=== PATIENT | male | born 1970 | race Caucasian/White ===

== ENCOUNTER 2017-09-13 12:45 | Emergency (ER) | payer MEDICAID, OTHER ==
[~2017-09-13] VITALS: Ht 177.8 cm; Wt 104.0 kg
[~2017-09-13 12:45] MED LIST: HYDR-569 PO
[2017-09-13] MEDS ORDERED: ALBU8HFA PO (14:39)
[2017-09-13] MEDS ORDERED: IBUP-1984 PO (14:39)
[2017-09-13] MEDS ORDERED: ibuprofen tablet 400 MG TABLET PO ONE (14:45)
[2017-09-13] MEDS ORDERED: albuterol 2.5 MG/3 ML nebule NEB ONE (15:15)
[2017-09-13 16:22] VITALS: BP 160/79
== END 2017-09-13 17:04 | disposition home or self-care (01) ==
LOC: ER 12:46
DX: J40 Bronchitis, not specified as acute or chronic (principal); F10.10 Alcohol abuse, uncomplicated; F12.10 Cannabis abuse, uncomplicated; F15.10 Other stimulant abuse, uncomplicated; Z60.2 Problems related to living alone; Z56.0 Unemployment, unspecified
CPT/HCPCS: 71045; 94640; 94760; 99283

== ENCOUNTER 2019-01-06 16:03 | Emergency (ER) | payer MEDICAID, OTHER ==
[~2019-01-06] VITALS: Ht 177.8 cm; Wt 120.0 kg
[~2019-01-06 16:03] MED LIST changes: +HYDR-4383 PO; -HYDR-569 PO
[2019-01-06 16:07] VITALS: BP 180/107
[2019-01-06] MEDS ORDERED: baclofen 10mg tablet PO STA (17:13)
[2019-01-06] MEDS ORDERED: LIDOcaine 5% patch TP STA (17:13)
[2019-01-06] MEDS ORDERED: ibuprofen tablet 400 MG TABLET PO ONE (17:15)
[2019-01-06] MEDS ORDERED: LIDO700A32 TOP (17:20)
[2019-01-06] MEDS ORDERED: ACET-2119 PO (17:20)
[2019-01-06] MEDS ORDERED: IBUP-1985 PO (17:20)
== END 2019-01-06 17:49 | disposition home or self-care (01) ==
LOC: ER 16:04
DX: S39.012A Strain of muscle, fascia and tendon of lower back, initial encounter (principal); F10.99 Alcohol use, unspecified with unspecified alcohol-induced disorder; F12.90 Cannabis use, unspecified, uncomplicated; F15.90 Other stimulant use, unspecified, uncomplicated; Z59.0 Homelessness; Z56.0 Unemployment, unspecified; Z88.8 Allergy status to other drugs, medicaments and biological substances; Z79.899 Other long term (current) drug therapy; X50.1XXA Overexertion from prolonged static or awkward postures, initial encounter; Y93.89 Activity, other specified; Y92.89 Other specified places as the place of occurrence of the external cause; Y99.8 Other external cause status; Y90.9 Presence of alcohol in blood, level not specified
CPT/HCPCS: 99284

== ENCOUNTER 2020-12-20 06:46 | Inpatient (IN) | payer MEDICAID ==
[~2020-12-20] VITALS: Ht 177.8 cm; Wt 131.6 kg
[~2020-12-20 06:46] MED LIST changes: +IBUP-1985 PO; +LIDO700A32 TOP
[2020-12-20 09:03] LABS: BASOPHILS # (AUTO) 0.1 X10'3 (0-0.2); EOSINOPHILS # (AUTO) 0.2 X10'3 (0-0.9); EOSINOPHILS % (AUTO) 2.4 % (0-6); HEMATOCRIT 44.4 % (42.0-52.0); HEMOGLOBIN 14.8 g/dl (14.0-17.9); LYMPHOCYTES # (AUTO) 2.5 X10'3 (1.1-4.8); LYMPHOCYTES % (AUTO) 32.1 % (21-51); MEAN CORPUSCULAR HEMOGLOBIN 28.5 PG (27.0-31.0); MEAN CORPUSCULAR HGB CONC 33.3 g/dL (33.0-36.5); MEAN CORPUSCULAR VOLUME 85.5 FL (78-98); MEAN PLATELET VOLUME 7.7 FL (7.4-10.4); MONOCYTES # (AUTO) 0.6 X10'3 (0-0.9); MONOCYTES % (AUTO) 7.9 % (2-12); NEUTROPHILS # (AUTO) 4.5 X10'3 (1.8-7.7); NEUTROPHILS % (AUTO) 56.6 % (42-75); PLATELET COUNT 317 X10'3 (140-440); RED CELL DISTRIBUTION WIDTH 14.6 % (11.5-14.5); WHITE BLOOD COUNT 7.9 X10'3 (4.5-11.0)
[2020-12-20 09:24] LABS: ALANINE AMINOTRANSFERASE 44 U/L (12-78); ALBUMIN 3.5 G/DL (3.4-5.0); ALBUMIN/GLOBULIN RATIO 0.7 (1.1-1.5); ALKALINE PHOSPHATASE 101 IU/L (46-116); ANION GAP 10 (8-16); ASPARTATE AMINO TRANSFERASE 27 U/L (10-37); BILIRUBIN,TOTAL 0.7 MG/DL (0.1-1.0); BLOOD UREA NITROGEN 11 MG/DL (7-18); BUN/CREATININE RATIO 10.8 (5.4-32.0); CALCIUM 8.3 MG/DL (8.5-10.1); CHLORIDE 103 MMOL/L (99-107); CREATININE 1.02 MG/DL (0.60-1.10); GLUCOSE 98 MG/DL (70-104); POTASSIUM 3.5 MMOL/L (3.5-5.1); SODIUM 139 MMOL/L (135-145); TOTAL PROTEIN 8.2 G/DL (6.4-8.2); eGFR 77 ML/MIN
[2020-12-20] MEDS ORDERED: vancomycin/NS 1 GM ADD-VANTAGE 250 ML IV ONE (09:30)
[2020-12-20] MEDS ORDERED: nitroGLYCERIN 0.4mg/hour patch TD ONE (10:20)
[2020-12-20] MEDS ORDERED: HYDROcodone/acetaminophen 5mg/325mg tablet PO PRN (10:40)
[2020-12-20] MEDS ORDERED: mag hydrox/Alum hydrox/simeth 30ml oral suspension PO PRN (10:40)
[2020-12-20] MEDS ORDERED: morphine 2 MG/ML inj. syringe IV PRN ×2 (10:40)
[2020-12-20] MEDS ORDERED: ondansetron/PF 4mg/2ml inj IV PRN (10:40)
[2020-12-20] MEDS ORDERED: magnesium hydroxide 30ml (MOM) UD suspension PO PRN (10:40)
[2020-12-20] MEDS ORDERED: acetaminophen 325mg tablet PO PRN ×2 (10:40)
--- NOTE | 2020-12-20 10:42 | NUR ---
voided 300cc clear yellow via urinal.
[2020-12-20] MEDS ORDERED: NO HOME MEDS (11:17)
[2020-12-20] MEDS ORDERED: cloNIDine 0.1 mg tablet PO ONE (11:25)
[2020-12-20] MEDS: cloNIDine 0.1 mg tablet PO SCH ×2 (13:00→21:27)
[2020-12-20 15:45] VITALS: BP 159/91
[2020-12-20] MEDS: cefazolin/dext.iso 2gm/100ml 100 ML IV SCH (16:46)
--- NOTE | 2020-12-20 18:43 | NUR ---
Problems reprioritized. Patient report given, questions answered & plan of care reviewed with SHAQUILLE Martinez.
--- NOTE | 2020-12-20 18:59 | NUR ---
Patient in room [facility]. I have received report from Yasmine CORBIN and had the opportunity to ask questions and assume patient care.
[2020-12-20 20:18] VITALS: BP 151/82
[2020-12-20 23:22] VITALS: BP 138/78
[2020-12-21] MEDS: cefazolin/dext.iso 2gm/100ml 100 ML IV SCH ×4 (00:27→23:23)
--- NOTE | 2020-12-21 06:34 | NUR ---
Problems reprioritized. Patient report given, questions answered & plan of care reviewed with Becky CORBIN.
[2020-12-21 07:00] VITALS: BP 151/99
[2020-12-21] MEDS: cloNIDine 0.1 mg tablet PO SCH ×3 (08:18→23:22)
[2020-12-21] MEDS: HYDROcodone/acetaminophen 10/325mg tab PO PRN (08:19)
[2020-12-21] MEDS: enoxaparin 40mg/0.4ml syringe SUBCUT SCH (08:19)
[2020-12-21 10:02] LABS: BASOPHILS # (AUTO) 0.1 X10'3 (0-0.2); EOSINOPHILS # (AUTO) 0.1 X10'3 (0-0.9); EOSINOPHILS % (AUTO) 1.8 % (0-6); MONOCYTES # (AUTO) 0.4 X10'3 (0-0.9); RED BLOOD COUNT 4.98 X10'6 (4.70-6.10); WHITE BLOOD COUNT 6.8 X10'3 (4.5-11.0)
[2020-12-21 10:04] LABS: BASOPHILS % (AUTO) 0.9 % (0-1); HEMATOCRIT 42.2 % (42.0-52.0); HEMOGLOBIN 14.4 g/dl (14.0-17.9); LYMPHOCYTES # (AUTO) 1.5 X10'3 (1.1-4.8); LYMPHOCYTES % (AUTO) 22.2 % (21-51); MEAN CORPUSCULAR HEMOGLOBIN 28.9 PG (27.0-31.0); MEAN CORPUSCULAR HGB CONC 34.1 g/dL (33.0-36.5); MEAN CORPUSCULAR VOLUME 84.7 FL (78-98); MONOCYTES % (AUTO) 6.4 % (2-12); NEUTROPHILS # (AUTO) 4.7 X10'3 (1.8-7.7); NEUTROPHILS % (AUTO) 68.7 % (42-75); PLATELET COUNT 302 X10'3 (140-440); RED CELL DISTRIBUTION WIDTH 14.3 % (11.5-14.5)
[2020-12-21 10:10] LABS: ANION GAP 6 (8-16); BLOOD UREA NITROGEN 14 MG/DL (7-18); CALCIUM 8.6 MG/DL (8.5-10.1); CHLORIDE 104 MMOL/L (99-107); GLUCOSE 173 MG/DL (70-104); POTASSIUM 3.7 MMOL/L (3.5-5.1); SODIUM 139 MMOL/L (135-145); TOTAL CARBON DIOXIDE 28.6 MMOL/L (24-32); eGFR 79 ML/MIN
[2020-12-21 11:00] VITALS: BP 135/96
[2020-12-21 15:18] VITALS: BP 137/90
--- NOTE | 2020-12-21 18:37 | NUR ---
Gave report to Juan CORBIN.
--- NOTE | 2020-12-21 19:05 | NUR ---
Patient in room [facility]. I have received report from Becky CORBIN and had the opportunity to ask questions and assume patient care.
[2020-12-21] MEDS: lactobacillus rhamnosus 10,000 MMU CELLS/CAPSULE PO SCH (23:22)
[2020-12-22 06:31] LABS: BASOPHILS % (AUTO) 0.4 % (0-1); EOSINOPHILS # (AUTO) 0.2 X10'3 (0-0.9); EOSINOPHILS % (AUTO) 2.5 % (0-6); HEMATOCRIT 43.4 % (42.0-52.0); HEMOGLOBIN 14.7 g/dl (14.0-17.9); LYMPHOCYTES # (AUTO) 2.1 X10'3 (1.1-4.8); LYMPHOCYTES % (AUTO) 28.3 % (21-51); MEAN CORPUSCULAR HEMOGLOBIN 29.1 PG (27.0-31.0); MEAN CORPUSCULAR HGB CONC 33.8 g/dL (33.0-36.5); MEAN CORPUSCULAR VOLUME 86.1 FL (78-98); MEAN PLATELET VOLUME 7.8 FL (7.4-10.4); MONOCYTES # (AUTO) 0.6 X10'3 (0-0.9); MONOCYTES % (AUTO) 8.6 % (2-12); NEUTROPHILS # (AUTO) 4.4 X10'3 (1.8-7.7); NEUTROPHILS % (AUTO) 60.2 % (42-75); PLATELET COUNT 306 X10'3 (140-440); RED BLOOD COUNT 5.04 X10'6 (4.70-6.10); RED CELL DISTRIBUTION WIDTH 14.4 % (11.5-14.5); WHITE BLOOD COUNT 7.3 X10'3 (4.5-11.0)
--- NOTE | 2020-12-22 06:41 | NUR ---
Patient in room [facility]. I have received report from Juan CORBIN and had the opportunity to ask questions and assume patient care.
[2020-12-22 06:49] LABS: ANION GAP 8 (8-16); BLOOD UREA NITROGEN 12 MG/DL (7-18); CALCIUM 8.5 MG/DL (8.5-10.1); CHLORIDE 105 MMOL/L (99-107); CREATININE 0.86 MG/DL (0.60-1.10); GLUCOSE 95 MG/DL (70-104); POTASSIUM 4.2 MMOL/L (3.5-5.1); SODIUM 140 MMOL/L (135-145); TOTAL CARBON DIOXIDE 26.7 MMOL/L (24-32); eGFR > 90 ML/MIN
--- NOTE | 2020-12-22 07:13 | NUR ---
Problems reprioritized. Patient report given, questions answered & plan of care reviewed with Amelia CORBIN.
[2020-12-22 07:30] VITALS: BP 161/114
[2020-12-22] MEDS: lactobacillus rhamnosus 10,000 MMU CELLS/CAPSULE PO SCH (07:35)
[2020-12-22] MEDS: cloNIDine 0.1 mg tablet PO SCH ×2 (07:36→13:28)
[2020-12-22] MEDS: HYDROcodone/acetaminophen 10/325mg tab PO PRN (07:36)
[2020-12-22] MEDS: cefazolin/dext.iso 2gm/100ml 100 ML IV SCH (07:37)
[2020-12-22] MEDS: enoxaparin 40mg/0.4ml syringe SUBCUT SCH (07:37)
[2020-12-22 07:45] VITALS: BP 160/100
--- NOTE | 2020-12-22 07:53 | NUR ---
Pt's BP elevated, c/o neck and back pain 01/23 (states he thinks it's from laying in the hospital bed). Meds given. Charge notified. Will continue to monitor.
[2020-12-22] MEDS ORDERED: HYDR-3965 PO (10:28)
[2020-12-22] MEDS ORDERED: CLIN-91 PO (10:28)
[2020-12-22] MEDS ORDERED: CLON0.1T2 PO (10:28)
--- NOTE | 2020-12-22 13:30 | NUR ---
Pt had been waiting for ride to d/c. States his mother was here but he forgot to tell this RN. Pt d/c completed. Pt stable and appropriate for d/c. PIV d/c'd cannula intact. Reviewed with pt all d/c instructions, meds, wound care and followup with pt given opportunity to ask questions, answers provided and pt verbalizing understanding. Prescriptions escripted to pharmacy of choice. Pt to call and schedule an appt with a PCP. Pt to call MD with any questions, concerns or worsening symptoms or return to nearest ED. Pt states he has all personal belongings. Pt escorted to front lobby by staff member via w/c. D/C'd home in private vehicle driven by family member.
--- NOTE | 2020-12-22 13:41 | NUR ---
room 347B d/c'g pt - he is verbalizing concerns asking if his D/C meds will be paid for by his insurance. Thank you, Amelia will continue to monitor.
== END 2020-12-22 13:51 | disposition home or self-care (01) | DRG 383 ==
LOC: ER 06:47 → ED HOLD 10:40 → SUR 3N 15:42
PROVIDERS: ADMIT Internal Medicine; ATTEND Internal Medicine
DX: L03.116 Cellulitis of left lower limb (principal); E66.01 Morbid (severe) obesity due to excess calories; F12.90 Cannabis use, unspecified, uncomplicated; I10 Essential (primary) hypertension; G47.30 Sleep apnea, unspecified; I87.2 Venous insufficiency (chronic) (peripheral); Z68.41 Body mass index [BMI] 40.0-44.9, adult; Z83.3 Family history of diabetes mellitus; Z87.442 Personal history of urinary calculi; Z87.891 Personal history of nicotine dependence; Z59.0 Homelessness; Z88.8 Allergy status to other drugs, medicaments and biological substances
CPT/HCPCS: 36415; 80048; 80053; 82948; 83605; 83880; 85025; 87040; 87081; 93971; 96374; 99285; G0378; J1650; J2270; J3370

== ENCOUNTER 2021-01-10 02:49 | Emergency (ER) | payer MEDICAID ==
[~2021-01-10] VITALS: Ht 177.8 cm; Wt 113.6 kg
[~2021-01-10 02:49] MED LIST changes: +CLON0.1T2 PO; +HYDR-3965 PO; -HYDR-4383 PO; -IBUP-1985 PO; -LIDO700A32 TOP
[2021-01-10 03:10] VITALS: BP 182/114
== END 2021-01-10 05:41 | disposition left against medical advice (07) ==
LOC: ER 02:50
DX: R10.9 Unspecified abdominal pain (principal); Z53.21 Procedure and treatment not carried out due to patient leaving prior to being seen by health care provider
CPT/HCPCS: 93005

== ENCOUNTER 2021-02-07 15:24 | Emergency (ER) | payer MEDICAID ==
[~2021-02-07] VITALS: Ht 177.8 cm; Wt 136.4 kg
[~2021-02-07 15:24] MED LIST changes: -HYDR-3965 PO
[2021-02-07] MEDS ORDERED: iohexol 300mg/ml 100ml inj. ONE (17:30)
[2021-02-07 17:35] LABS: BASOPHILS # (AUTO) 0.1 X10'3 (0-0.2); BASOPHILS % (AUTO) 0.6 % (0-1); EOSINOPHILS # (AUTO) 0.2 X10'3 (0-0.9); EOSINOPHILS % (AUTO) 1.4 % (0-6); HEMATOCRIT 45.5 % (42.0-52.0); HEMOGLOBIN 15.4 g/dl (14.0-17.9); LYMPHOCYTES # (AUTO) 2.2 X10'3 (1.1-4.8); MEAN CORPUSCULAR HEMOGLOBIN 28.8 PG (27.0-31.0); MEAN CORPUSCULAR HGB CONC 33.8 g/dL (33.0-36.5); MEAN CORPUSCULAR VOLUME 85.1 FL (78-98); MEAN PLATELET VOLUME 7.4 FL (7.4-10.4); MONOCYTES # (AUTO) 0.6 X10'3 (0-0.9); MONOCYTES % (AUTO) 5.1 % (2-12); NEUTROPHILS # (AUTO) 9.2 X10'3 (1.8-7.7); NEUTROPHILS % (AUTO) 74.9 % (42-75); PLATELET COUNT 356 X10'3 (140-440); RED BLOOD COUNT 5.35 X10'6 (4.70-6.10); RED CELL DISTRIBUTION WIDTH 13.9 % (11.5-14.5); WHITE BLOOD COUNT 12.2 X10'3 (4.5-11.0)
[2021-02-07] MEDS ORDERED: morphine 10mg/ml inj. IV ONE (18:00)
[2021-02-07] MEDS ORDERED: TETanus/Pertussis (Acell)/Diphther VAC/PF (Tdap-Adult) 0.5ml syringe IMVAC ONE (18:00)
[2021-02-07 18:33] VITALS: BP 185/115
--- NOTE | 2021-02-07 18:43 | NUR ---
CHIPPING MACHINE OPERATOR EMAN CONTACTED - IN ROUTE, 30MIN ETA.
--- NOTE | 2021-02-07 19:15 | NUR ---
Loader Engineer at the bedside to splint R wrist/hand.
[2021-02-07 19:20] LABS: ALANINE AMINOTRANSFERASE 46 U/L (12-78); ALBUMIN 3.7 G/DL (3.4-5.0); ALBUMIN/GLOBULIN RATIO 0.8 (1.1-1.5); ALKALINE PHOSPHATASE 102 IU/L (46-116); ANION GAP 1 (8-16); ASPARTATE AMINO TRANSFERASE 32 U/L (10-37); BILIRUBIN,TOTAL 0.5 MG/DL (0.1-1.0); BLOOD UREA NITROGEN 10 MG/DL (7-18); BUN/CREATININE RATIO 10.5 (5.4-32.0); CALCIUM 8.6 MG/DL (8.5-10.1); CHLORIDE 102 MMOL/L (99-107); CREATININE 0.95 MG/DL (0.60-1.10); GLUCOSE 95 MG/DL (70-104); POTASSIUM 3.3 MMOL/L (3.5-5.1); SODIUM 131 MMOL/L (135-145); TOTAL CARBON DIOXIDE 28.3 MMOL/L (24-32); TOTAL PROTEIN 8.1 G/DL (6.4-8.2); eGFR 84 ML/MIN
--- NOTE | 2021-02-07 19:40 | NUR ---
Pt given and understands d/c instructions. R UE in a sling. Ambulatory with a steady gait.
== END 2021-02-07 19:45 | disposition home or self-care (01) ==
LOC: ER 15:24
DX: S02.2XXA Fracture of nasal bones, initial encounter for closed fracture (principal); S62.300A Unspecified fracture of second metacarpal bone, right hand, initial encounter for closed fracture; S01.21XA Laceration without foreign body of nose, initial encounter; R07.89 Other chest pain; M25.511 Pain in right shoulder; I10 Essential (primary) hypertension; F12.90 Cannabis use, unspecified, uncomplicated; F15.90 Other stimulant use, unspecified, uncomplicated; Z87.442 Personal history of urinary calculi; Z56.0 Unemployment, unspecified; Z59.0 Homelessness; Z88.8 Allergy status to other drugs, medicaments and biological substances; Z79.899 Other long term (current) drug therapy; V99.XXXA Unspecified transport accident, initial encounter; Y93.89 Activity, other specified; Y92.89 Other specified places as the place of occurrence of the external cause; Y99.8 Other external cause status
CPT/HCPCS: 29125; 36415; 70450; 71260; 72125; 73030; 73130; 73564; 74177; 80053; 85025; 85610; 90471; 90715; 96374; 99285; J2270; Q9967

== ENCOUNTER 2021-09-05 12:14 | Inpatient (IN) | payer MEDICAID ==
[~2021-09-05] VITALS: Ht 177.8 cm; Wt 104.5 kg
[2021-09-05 13:46] LABS: BASOPHILS # (AUTO) 0.1 X10'3 (0-0.2); BASOPHILS % (AUTO) 0.4 % (0-1); EOSINOPHILS # (AUTO) 0.1 X10'3 (0-0.9); EOSINOPHILS % (AUTO) 0.4 % (0-6); HEMATOCRIT 42.1 % (42.0-52.0); HEMOGLOBIN 13.7 g/dl (14.0-17.9); LYMPHOCYTES # (AUTO) 1.5 X10'3 (1.1-4.8); LYMPHOCYTES % (AUTO) 8.1 % (21-51); MEAN CORPUSCULAR HEMOGLOBIN 27.5 PG (27.0-31.0); MEAN CORPUSCULAR HGB CONC 32.6 g/dL (33.0-36.5); MEAN CORPUSCULAR VOLUME 84.3 FL (78-98); MEAN PLATELET VOLUME 7.5 FL (7.4-10.4); MONOCYTES # (AUTO) 1.2 X10'3 (0-0.9); MONOCYTES % (AUTO) 6.5 % (2-12); NEUTROPHILS # (AUTO) 15.4 X10'3 (1.8-7.7); NEUTROPHILS % (AUTO) 84.6 % (42-75); PLATELET COUNT 327 X10'3 (140-440); RED BLOOD COUNT 4.99 X10'6 (4.70-6.10); RED CELL DISTRIBUTION WIDTH 13.9 % (11.5-14.5); WHITE BLOOD COUNT 18.2 X10'3 (4.5-11.0)
[2021-09-05 13:57] LABS: CLARITY,URINE CLEAR (Clear); COLOR,URINE YELLOW (Yellow); GLUCOSE, URINE NEGATIVE (Neg); KETONES,URINE NEGATIVE (Neg); LEUKOCYTE ESTERASE ,URINE NEGATIVE (Neg); NITRITES, URINE NEGATIVE (Neg); OCCULT BLOOD,URINE NEGATIVE (Neg); PROTEIN,URINE NEGATIVE (Neg)
[2021-09-05 13:59] LABS: UA COLLECTION TYPE CLN CATCH MIDSTREAM
[2021-09-05 14:11] LABS: ALANINE AMINOTRANSFERASE 40 U/L (12-78); ALBUMIN 3.3 G/DL (3.4-5.0); ALBUMIN/GLOBULIN RATIO 0.7 (1.1-1.5); ALKALINE PHOSPHATASE 96 IU/L (46-116); ANION GAP 13 (8-16); ASPARTATE AMINO TRANSFERASE 26 U/L (10-37); BILIRUBIN,TOTAL 1.1 MG/DL (0.1-1.0); BLOOD UREA NITROGEN 10 MG/DL (7-18); BUN/CREATININE RATIO 12.5 (5.4-32.0); CALCIUM 8.8 MG/DL (8.5-10.1); CHLORIDE 102 MMOL/L (99-107); GLUCOSE 97 MG/DL (70-104); POTASSIUM 3.7 MMOL/L (3.5-5.1); SODIUM 138 MMOL/L (135-145); TOTAL CARBON DIOXIDE 22.6 MMOL/L (24-32); TOTAL PROTEIN 8.1 G/DL (6.4-8.2); eGFR > 90 ML/MIN
--- NOTE | 2021-09-05 14:28 | NUR ---
Patient reports occasional meth use; last use three days ago.
[2021-09-05] MEDS ORDERED: piperacillin/tazo 3.375gm/50ml 50 ML IV ONE (14:55)
[2021-09-05] MEDS ORDERED: normal saline 1000ML IV soln IV ONE (14:55)
[2021-09-05] MEDS ORDERED: NO HOME MEDS (17:32)
[2021-09-05] MEDS ORDERED: potassium Cl 20 mEq SR tablet PO PRN ×2 (17:40)
[2021-09-05] MEDS ORDERED: metoclopramide 5 mg/ml inj IV PRN (17:40)
[2021-09-05] MEDS ORDERED: HYDROcodone/acetaminophen 5mg/325mg tablet PO PRN (17:40)
[2021-09-05] MEDS ORDERED: magnesium Cl slow-release 64mg tablet PO PRN (17:40)
[2021-09-05] MEDS ORDERED: ondansetron/PF 4mg/2ml inj IV PRN (17:40)
[2021-09-05] MEDS ORDERED: bisacodyl 10mg suppository rectal RC PRN (17:40)
[2021-09-05] MEDS ORDERED: ondansetron 4mg rapidly disintigrating tab PO PRN (17:40)
[2021-09-05] MEDS ORDERED: acetaminophen 325mg tablet PO PRN ×2 (17:40)
[2021-09-05] MEDS ORDERED: magnesium 2GM in 50ml NS 50 ML IV PRN (17:40)
[2021-09-05] MEDS ORDERED: mag hydrox/Alum hydrox/simeth 30ml oral suspension PO PRN (17:40)
[2021-09-05] MEDS ORDERED: acetaminophen 650mg rectal suppository RC PRN (17:40)
[2021-09-05] MEDS ORDERED: magnesium hydroxide 30ml (MOM) UD suspension PO PRN (17:40)
[2021-09-05] MEDS ORDERED: potassium CL 10mEq/100ml bag 100 ML IV PRN (17:40)
[2021-09-05] MEDS ORDERED: HYDROmorphone inj. 0.5 MG/0.5 ML DISP.SYRIN IV PRN (17:40)
[2021-09-05] MEDS ORDERED: HYDROmorphone/PF 0.2 MG/ML SYRINGE IV PRN (17:40)
[2021-09-05] MEDS ORDERED: magnesium 4gm in 100ml NS 100 ML IV PRN (17:40)
[2021-09-05] MEDS: normal saline 1000ml 1,000 ML IV SCH ×2 (17:58→23:37)
[2021-09-05 18:17] LABS: MAGNESIUM 1.9 MG/DL (1.5-2.4); POTASSIUM 3.7 MMOL/L (3.5-5.1)
--- NOTE | 2021-09-05 18:36 | NUR ---
Assumed care of patient from Gordo CORBIN. Vanesa+Ox4. Aware of admission. IV fluids infusing
[2021-09-05] MEDS ORDERED: VANCOmycin 2,000MG in NS 500ml IV soln IV ONE (19:00)
--- NOTE | 2021-09-05 19:14 | NUR ---
SPOKE WITH PHARMACY PREPARING VANCOMYCIN 2GM IV
[2021-09-05] MEDS: docusate sod 100mg capsule PO SCH (20:02)
[2021-09-05] MEDS: lisinopril 20mg tablet PO SCH (20:03)
[2021-09-05] MEDS: furosemide 20 MG/2 ML vial IV SCH (20:06)
[2021-09-05] MEDS ORDERED: temazepam 15mg capsule PO PRN (21:00)
--- NOTE | 2021-09-05 21:30 | NUR ---
Received report from Brunilda CORBIN in the ER. Pt arrived on the unit via wheelchair and was able to ambulate independently to his bed. Pt belongings were placed at bedside. Pt was in a gown, on room air, VSS with NS running @ 70 mls/hr and vanco running @166/hr. Pt had no signs of distress, will continue to monitor.
[2021-09-05 21:36] VITALS: BP 142/93
[2021-09-05] MEDS: K and/or MAG REPLACEMENT MC SCH (21:40)
[2021-09-05] MEDS: piperacillin/tazo 3.375gm/50ml 50 ML IV SCH (23:38)
[2021-09-06] VITALS: BP 156/95
[2021-09-06] MEDS: vancomycin/NS 1 GM ADD-VANTAGE 250 ML X 1 DOSE IV SCH ×3 (03:05→20:16)
[2021-09-06] MEDS: HYDROcodone/acetaminophen 10/325mg tab PO PRN ×3 (04:27→16:17)
--- NOTE | 2021-09-06 06:23 | NUR ---
Patient in room [facility]. I have received report from ELDA CORBIN and had the opportunity to ask questions and assume patient care.
--- NOTE | 2021-09-06 06:29 | NUR ---
Problems reprioritized. Patient report given, questions answered & plan of care reviewed with Chirsty CORBIN.
[2021-09-06 06:42] LABS: BASOPHILS % (AUTO) 0.3 % (0-1); EOSINOPHILS # (AUTO) 0.1 X10'3 (0-0.9); EOSINOPHILS % (AUTO) 1.1 % (0-6); HEMATOCRIT 39.4 % (42.0-52.0); LYMPHOCYTES # (AUTO) 1.8 X10'3 (1.1-4.8); LYMPHOCYTES % (AUTO) 14.5 % (21-51); MEAN CORPUSCULAR HEMOGLOBIN 28.1 PG (27.0-31.0); MEAN CORPUSCULAR VOLUME 85.1 FL (78-98); MEAN PLATELET VOLUME 7.8 FL (7.4-10.4); MONOCYTES # (AUTO) 1.1 X10'3 (0-0.9); MONOCYTES % (AUTO) 8.9 % (2-12); NEUTROPHILS # (AUTO) 9.5 X10'3 (1.8-7.7); NEUTROPHILS % (AUTO) 75.2 % (42-75); PLATELET COUNT 282 X10'3 (140-440); RED BLOOD COUNT 4.62 X10'6 (4.70-6.10); RED CELL DISTRIBUTION WIDTH 14.1 % (11.5-14.5); WHITE BLOOD COUNT 12.6 X10'3 (4.5-11.0)
[2021-09-06 07:05] LABS: ALANINE AMINOTRANSFERASE 36 U/L (12-78); ALBUMIN 2.7 G/DL (3.4-5.0); ALBUMIN/GLOBULIN RATIO 0.6 (1.1-1.5); ALKALINE PHOSPHATASE 87 IU/L (46-116); ANION GAP 13 (8-16); ASPARTATE AMINO TRANSFERASE 26 U/L (10-37); BILIRUBIN,TOTAL 0.9 MG/DL (0.1-1.0); BLOOD UREA NITROGEN 12 MG/DL (7-18); BUN/CREATININE RATIO 16.2 (5.4-32.0); CALCIUM 8.2 MG/DL (8.5-10.1); CHLORIDE 105 MMOL/L (99-107); CHOLESTEROL 133 MG/DL (0-200); CREATININE 0.74 MG/DL (0.60-1.10); GLUCOSE 93 MG/DL (70-104); HDL CHOLESTEROL 65 MG/DL (35-60); LDL CHOLESTEROL 52 MG/DL (50-100); MAGNESIUM 2.1 MG/DL (1.5-2.4); POTASSIUM 3.6 MMOL/L (3.5-5.1); SODIUM 141 MMOL/L (135-145); TOTAL CARBON DIOXIDE 23.3 MMOL/L (24-32); TOTAL PROTEIN 7.2 G/DL (6.4-8.2); TRIGLYCERIDES 63 MG/DL (20-135); eGFR > 90 ML/MIN
[2021-09-06] MEDS: K and/or MAG REPLACEMENT MC SCH ×2 (08:00→20:00)
[2021-09-06 08:11] VITALS: BP 139/84
[2021-09-06] MEDS: furosemide 20 MG/2 ML vial IV SCH (09:19)
[2021-09-06] MEDS: piperacillin/tazo 3.375gm/50ml 50 ML IV SCH ×3 (09:19→23:21)
[2021-09-06] MEDS: docusate sod 100mg capsule PO SCH ×2 (09:21→19:39)
[2021-09-06] MEDS: lisinopril 20mg tablet PO SCH (09:22)
[2021-09-06] MEDS: enoxaparin 40mg/0.4ml syringe SUBCUT SCH (09:23)
[2021-09-06 13:10] VITALS: BP 150/88
[2021-09-06] MEDS ORDERED: hydrALAZINE 20mg/ml inj. IV PRN (14:10)
--- NOTE | 2021-09-06 14:46 | NUR ---
PRESSURE ULCER EDUCATION: DEFINITION: A pressure ulcer is an area of skin that breaks down when you stay in one position too long. The constant pressure against the skin reduces the blood flow to that area and the affected tissue dies. CAUSES: "Being bedridden or in a wheelchair "Fragile skin "Having a chronic condition, such as diabetes or vascular disease "Inability to move certain parts of your body without assistance "Older age "Incontinence of urine or stool SYMPTOMS: "A reddened area that DOES NOT turn white when pressed on - this can be the beginning of a pressure ulcer "A blister, deep sore or a crater - these can be advanced pressure ulcers FIRST AID: "Relieve the pressure on this area "Keep the area clean and dry "Call your primary doctor if you see any of the above symptoms "DO NOT massage the area "DO NOT use a donut shaped or ring shaped pillow- these actually interfere with the blood flow and cause complications PREVENTION: "Check for pressure ulcers everyday "Change position at least every two hours to relieve pressure "Use items that help relieve pressure- pillows, sheepskin, foam padding, and powders. "Keep skin clean and dry "Eat healthy well balanced meals "Exercise daily IF YOU SEE ANY OF THESE SYMPTOMS WHILE IN THE HOSPITAL - TELL YOUR NURSE IMMEDIATELY. IF YOU SEE ANY OF THESE SYMPTOMS WHILE AT HOME OR HAVE ANY QUESTIONS OR CONCERNS ABOUT PRESSURE ULCERS - CALL YOUR PRIMARY DOCTOR IMMEDIATELY. Addendum: 09/06/21 at 1447 by Dian Gill RN Amended: Links added.
[2021-09-06] MEDS: normal saline 1000ml 1,000 ML IV SCH (17:11)
--- NOTE | 2021-09-06 17:43 | NUR ---
patient c/o generalized pain mostly in back repositioned and medicated with [place] x2 with some effect. Seen by wound team, and Dr Muro. continues with ABX. Eucerin prescribed for bilat lower legs. will continue to monitor.
--- NOTE | 2021-09-06 18:20 | NUR ---
Patient in room [facility]. I have received report from JOI CORBIN and had the opportunity to ask questions and assume patient care.
--- NOTE | 2021-09-06 18:26 | NUR ---
Problems reprioritized. Patient report given, questions answered & plan of care reviewed with Bruno CORBIN.
[2021-09-06] MEDS ORDERED: VANCOMYCIN LEVEL IV ONE (18:30)
[2021-09-06] MEDS: mineral oil/petrolatum, white cream 113gm jar TP SCH (20:06)
[2021-09-06 21:00] VITALS: BP 125/64
[2021-09-07] VITALS: BP 145/71
[2021-09-07] MEDS: HYDROcodone/acetaminophen 10/325mg tab PO PRN ×2 (00:48→09:02)
[2021-09-07] MEDS: vancomycin/NS 1 GM ADD-VANTAGE 250 ML X 1 DOSE IV SCH (03:13)
--- NOTE | 2021-09-07 06:29 | NUR ---
Problems reprioritized. Patient report given, questions answered & plan of care reviewed with BRYN CORBIN.
[2021-09-07 06:36] LABS: BASOPHILS % (AUTO) 0.4 % (0-1); EOSINOPHILS # (AUTO) 0.2 X10'3 (0-0.9); EOSINOPHILS % (AUTO) 2.5 % (0-6); LYMPHOCYTES % (AUTO) 21.4 % (21-51); MEAN CORPUSCULAR HEMOGLOBIN 27.7 PG (27.0-31.0); MEAN CORPUSCULAR HGB CONC 32.5 g/dL (33.0-36.5); MEAN CORPUSCULAR VOLUME 85.2 FL (78-98); MEAN PLATELET VOLUME 7.9 FL (7.4-10.4); MONOCYTES # (AUTO) 0.7 X10'3 (0-0.9); MONOCYTES % (AUTO) 7.7 % (2-12); NEUTROPHILS # (AUTO) 6.3 X10'3 (1.8-7.7); PLATELET COUNT 320 X10'3 (140-440); RED BLOOD COUNT 5.05 X10'6 (4.70-6.10); RED CELL DISTRIBUTION WIDTH 14.2 % (11.5-14.5); WHITE BLOOD COUNT 9.3 X10'3 (4.5-11.0)
[2021-09-07 06:52] LABS: ALANINE AMINOTRANSFERASE 40 U/L (12-78); ALBUMIN 2.7 G/DL (3.4-5.0); ALBUMIN/GLOBULIN RATIO 0.5 (1.1-1.5); ALKALINE PHOSPHATASE 89 IU/L (46-116); ANION GAP 12 (8-16); ASPARTATE AMINO TRANSFERASE 31 U/L (10-37); BILIRUBIN,TOTAL 0.5 MG/DL (0.1-1.0); BLOOD UREA NITROGEN 10 MG/DL (7-18); BUN/CREATININE RATIO 12.3 (5.4-32.0); CALCIUM 8.6 MG/DL (8.5-10.1); CHLORIDE 104 MMOL/L (99-107); CREATININE 0.81 MG/DL (0.60-1.10); GLUCOSE 101 MG/DL (70-104); MAGNESIUM 2.1 MG/DL (1.5-2.4); POTASSIUM 4.1 MMOL/L (3.5-5.1); SODIUM 142 MMOL/L (135-145); TOTAL CARBON DIOXIDE 26.5 MMOL/L (24-32); TOTAL PROTEIN 8.2 G/DL (6.4-8.2); eGFR > 90 ML/MIN
--- NOTE | 2021-09-07 07:09 | NUR ---
Patient in room [facility]. I have received report from Bruno CORBIN Traveler and had the opportunity to ask questions and assume patient care.
[2021-09-07 08:00] VITALS: BP 155/107
[2021-09-07] MEDS: K and/or MAG REPLACEMENT MC SCH (08:00)
[2021-09-07] MEDS: mineral oil/petrolatum, white cream 113gm jar TP SCH (08:00)
[2021-09-07] MEDS: docusate sod 100mg capsule PO SCH (09:00)
[2021-09-07] MEDS: piperacillin/tazo 3.375gm/50ml 50 ML IV SCH (09:02)
[2021-09-07] MEDS: enoxaparin 40mg/0.4ml syringe SUBCUT SCH (09:02)
[2021-09-07] MEDS: furosemide 20 MG/2 ML vial IV SCH (09:02)
[2021-09-07] MEDS: lisinopril 20mg tablet PO SCH (09:04)
[2021-09-07 11:00] VITALS: BP 170/90
[2021-09-07] MEDS ORDERED: VANCOmycin 1250MG/NS 250ml Bag 250 ML IV SCH (11:00)
--- NOTE | 2021-09-07 11:39 | NUR ---
PAGER ID: [phone] MESSAGE: Darrionluly Puentesno#[id number]- FYI- Pt's vascular study is up. NO DVT. Thank you Ratna Philip [phone]
[2021-09-07] MEDS ORDERED: LISI40TA13 PO (12:06)
[2021-09-07] MEDS ORDERED: AMOX-580 PO (12:06)
[2021-09-07] MEDS ORDERED: NICO-669 BC (12:06)
[2021-09-07] MEDS ORDERED: FURO20TA4 PO (12:06)
[2021-09-08] MEDS ORDERED: VANCOMYCIN LEVEL IV ONE (10:30)
== END 2021-09-07 13:15 | disposition home or self-care (01) | DRG 720 ==
LOC: ER 12:15 → ED HOLD 17:42 → SUR 3N 21:25
PROVIDERS: ADMIT Family Medicine; ATTEND Family Medicine
DX: A41.9 Sepsis, unspecified organism (principal); I83.029 Varicose veins of left lower extremity with ulcer of unspecified site; E66.01 Morbid (severe) obesity due to excess calories; I10 Essential (primary) hypertension; I87.2 Venous insufficiency (chronic) (peripheral); K42.9 Umbilical hernia without obstruction or gangrene; R59.9 Enlarged lymph nodes, unspecified; F15.10 Other stimulant abuse, uncomplicated; F12.90 Cannabis use, unspecified, uncomplicated; L03.115 Cellulitis of right lower limb; L03.116 Cellulitis of left lower limb; Z68.33 Body mass index [BMI] 33.0-33.9, adult; Z87.442 Personal history of urinary calculi; Z87.891 Personal history of nicotine dependence; Z59.00 Homelessness unspecified; Z88.8 Allergy status to other drugs, medicaments and biological substances; Z71.6 Tobacco abuse counseling; Z71.51 Drug abuse counseling and surveillance of drug abuser
CPT/HCPCS: 36415; 71045; 74176; 80053; 80061; 80202; 81003; 83605; 83735; 84132; 84145; 85025; 87040; 87081; 93970; 99285; G0378; J0360; J1650; J1940; J2543; J3370; J7030; J7040

== ENCOUNTER 2021-12-10 13:48 | Emergency (ER) | payer MEDICAID ==
[~2021-12-10] VITALS: Ht 172.7 cm; Wt 104.5 kg
[~2021-12-10 13:48] MED LIST changes: +AMOX-580 PO; -CLON0.1T2 PO; +FURO20TA4 PO; +NICO-669 BC
[2021-12-10] MEDS ORDERED: normal saline 1000ML IV soln IVB ONE (14:40)
[2021-12-10] MEDS ORDERED: ketorolac trometh. 30mg/ml inj. IV ONE (14:40)
[2021-12-10 14:47] LABS: EOSINOPHILS % (AUTO) 0.7 % (0-6)
[2021-12-10 14:49] LABS: BASOPHILS % (AUTO) 0.7 % (0-1); HEMATOCRIT 50.3 % (42.0-52.0); HEMOGLOBIN 16.7 g/dl (14.0-17.9); LYMPHOCYTES # (AUTO) 1.1 X10'3 (1.1-4.8); LYMPHOCYTES % (AUTO) 35.3 % (21-51); MEAN CORPUSCULAR HEMOGLOBIN 28.7 PG (27.0-31.0); MEAN CORPUSCULAR HGB CONC 33.2 g/dL (33.0-36.5); MEAN CORPUSCULAR VOLUME 86.5 FL (78-98); MEAN PLATELET VOLUME 7.3 FL (7.4-10.4); MONOCYTES # (AUTO) 0.4 X10'3 (0-0.9); MONOCYTES % (AUTO) 13.2 % (2-12); NEUTROPHILS # (AUTO) 1.6 X10'3 (1.8-7.7); NEUTROPHILS % (AUTO) 50.1 % (42-75); PLATELET COUNT 246 X10'3 (140-440); RED BLOOD COUNT 5.82 X10'6 (4.70-6.10); RED CELL DISTRIBUTION WIDTH 14.1 % (11.5-14.5); WHITE BLOOD COUNT 3.2 X10'3 (4.5-11.0)
[2021-12-10 15:10] LABS: CLARITY,URINE CLEAR (Clear); COLOR,URINE YELLOW (Yellow); GLUCOSE, URINE NEGATIVE (Neg); KETONES,URINE NEGATIVE (Neg); LEUKOCYTE ESTERASE ,URINE NEGATIVE (Neg); NITRITES, URINE NEGATIVE (Neg); OCCULT BLOOD,URINE NEGATIVE (Neg); PROTEIN,URINE NEGATIVE (Neg)
[2021-12-10 15:11] LABS: UA COLLECTION TYPE CLN CATCH MIDSTREAM
--- NOTE | 2021-12-10 15:23 | NUR ---
informed dr. heredia of bp 188/123. please see new orders.
[2021-12-10] MEDS ORDERED: cloNIDine 0.1 mg tablet PO ONE (15:25)
[2021-12-10 15:34] LABS: ALANINE AMINOTRANSFERASE 45 U/L (12-78); ALBUMIN 3.6 G/DL (3.4-5.0); ALBUMIN/GLOBULIN RATIO 0.7 (1.1-1.5); ALKALINE PHOSPHATASE 94 IU/L (46-116); ANION GAP 8 (8-16); ASPARTATE AMINO TRANSFERASE 44 U/L (10-37); BILIRUBIN,TOTAL 0.4 MG/DL (0.1-1.0); BLOOD UREA NITROGEN 9 MG/DL (7-18); BUN/CREATININE RATIO 9.4 (5.4-32.0); CALCIUM 8.7 MG/DL (8.5-10.1); CHLORIDE 104 MMOL/L (99-107); CREATININE 0.96 MG/DL (0.60-1.10); GLUCOSE 111 MG/DL (70-104); SODIUM 139 MMOL/L (135-145); TOTAL CARBON DIOXIDE 26.6 MMOL/L (24-32); TOTAL PROTEIN 8.6 G/DL (6.4-8.2); eGFR 83 ML/MIN
[2021-12-10 15:41] LABS: POTASSIUM 3.8 MMOL/L (3.5-5.1)
[2021-12-10] MEDS ORDERED: LISI20TA28 PO ×3 (18:24→18:25)
[2021-12-10] MEDS ORDERED: lisinopril 10 MG tablet PO ONE (18:25)
[2021-12-10 18:30] VITALS: BP 168/106
== END 2021-12-10 18:32 | disposition home or self-care (01) ==
LOC: ER 13:48
DX: K42.9 Umbilical hernia without obstruction or gangrene (principal); K21.9 Gastro-esophageal reflux disease without esophagitis; I10 Essential (primary) hypertension; F15.10 Other stimulant abuse, uncomplicated; F12.10 Cannabis abuse, uncomplicated; Z88.8 Allergy status to other drugs, medicaments and biological substances
CPT/HCPCS: 36415; 74176; 80053; 81003; 83605; 84145; 85025; 87040; 96374; 99284; J1885; J7030

== ENCOUNTER 2022-04-01 21:43 | Emergency (ER) | payer MEDICAID ==
[~2022-04-01] VITALS: Ht 175.3 cm; Wt 129.6 kg
[~2022-04-01 21:43] MED LIST changes: +LISI20TA28 PO
[2022-04-01 21:53] VITALS: BP 181/106
[2022-04-01 22:37] LABS: BASOPHILS # (AUTO) 0.1 X10'3 (0-0.2); BASOPHILS % (AUTO) 0.9 % (0-1); EOSINOPHILS # (AUTO) 0.1 X10'3 (0-0.9); HEMATOCRIT 46.2 % (42.0-52.0); HEMOGLOBIN 15.1 g/dl (14.0-17.9); LYMPHOCYTES # (AUTO) 2.4 X10'3 (1.1-4.8); LYMPHOCYTES % (AUTO) 21.1 % (21-51); MEAN CORPUSCULAR HEMOGLOBIN 28.4 PG (27.0-31.0); MEAN CORPUSCULAR HGB CONC 32.6 g/dL (33.0-36.5); MEAN PLATELET VOLUME 7.5 FL (7.4-10.4); MONOCYTES # (AUTO) 0.6 X10'3 (0-0.9); MONOCYTES % (AUTO) 5.7 % (2-12); NEUTROPHILS % (AUTO) 71.3 % (42-75); PLATELET COUNT 314 X10'3 (140-440); RED BLOOD COUNT 5.31 X10'6 (4.70-6.10); RED CELL DISTRIBUTION WIDTH 13.9 % (11.5-14.5); WHITE BLOOD COUNT 11.2 X10'3 (4.5-11.0)
[2022-04-01 22:45] LABS: ALANINE AMINOTRANSFERASE 31 U/L (12-78); ALBUMIN 3.5 G/DL (3.4-5.0); ALBUMIN/GLOBULIN RATIO 0.7 (1.1-1.5); ALKALINE PHOSPHATASE 97 IU/L (46-116); ANION GAP 7 (8-16); ASPARTATE AMINO TRANSFERASE 16 U/L (10-37); BILIRUBIN,TOTAL 0.3 MG/DL (0.1-1.0); BLOOD UREA NITROGEN 13 MG/DL (7-18); BUN/CREATININE RATIO 12.5 (5.4-32.0); CALCIUM 9.5 MG/DL (8.5-10.1); CHLORIDE 104 MMOL/L (99-107); CREATININE 1.04 MG/DL (0.60-1.10); GLUCOSE 122 MG/DL (70-104); POTASSIUM 4.1 MMOL/L (3.5-5.1); SODIUM 140 MMOL/L (135-145); TOTAL PROTEIN 8.2 G/DL (6.4-8.2); eGFR 75 ML/MIN
[2022-04-02] MEDS ORDERED: acetaminophen 325mg tablet PO ONE (07:10)
[2022-04-02] MEDS ORDERED: ibuprofen tablet 400 MG TABLET PO ONE (07:10)
[2022-04-02] MEDS ORDERED: ceFAZolin 1gm IM kit IM ONE (07:10)
[2022-04-02] MEDS ORDERED: ondansetron 4mg rapidly disintigrating tab PO ONE (07:10)
[2022-04-02] MEDS ORDERED: SULF1TAB49 PO (07:14)
[2022-04-02] MEDS ORDERED: CEPH250T PO (07:14)
[2022-04-02] MEDS ORDERED: sulfamethoxazole/trimethoprim DS (800/160mg) tablet PO ONE (07:14)
[2022-04-02] MEDS ORDERED: fluconazole 100mg tablet PO ONE (07:20)
[2022-04-02] MEDS ORDERED: clotrimazole topical cream 15gm tube TP ONE (07:20)
== END 2022-04-02 08:07 | disposition home or self-care (01) ==
LOC: ER 21:44
DX: L02.216 Cutaneous abscess of umbilicus (principal); I10 Essential (primary) hypertension; F12.90 Cannabis use, unspecified, uncomplicated; F15.90 Other stimulant use, unspecified, uncomplicated; Z59.00 Homelessness unspecified; Z88.8 Allergy status to other drugs, medicaments and biological substances; Z79.2 Long term (current) use of antibiotics; Z79.899 Other long term (current) drug therapy
CPT/HCPCS: 36415; 80053; 83605; 84145; 85025; 87040; 96372; 99284; J0690

== ENCOUNTER 2022-10-17 12:22 | Emergency (ER) | payer MEDICAID ==
[~2022-10-17] VITALS: Ht 177.8 cm; Wt 132.6 kg
[2022-10-17 12:24] VITALS: BP 205/113
[2022-10-17] MEDS ORDERED: oxyCODONE/APAP 10/325mg tablet PO ONE (14:05)
[2022-10-17] MEDS ORDERED: LIDOcaine 1% 30ml preserv. free vial IJ STA (14:48)
[2022-10-17] MEDS ORDERED: LIDOcaine 1% (10mg/ml)w/preservative inj. 20ml MDV IJ STA (14:54)
[2022-10-17] MEDS ORDERED: OXYC-150 PO (16:17)
== END 2022-10-17 16:28 | disposition home or self-care (01) ==
LOC: ER 12:23
DX: S82.842A Displaced bimalleolar fracture of left lower leg, initial encounter for closed fracture (principal); I87.2 Venous insufficiency (chronic) (peripheral); I10 Essential (primary) hypertension; F15.20 Other stimulant dependence, uncomplicated; F12.90 Cannabis use, unspecified, uncomplicated; Z59.00 Homelessness unspecified; Z88.8 Allergy status to other drugs, medicaments and biological substances; V89.9XXA Person injured in unspecified vehicle accident, initial encounter; Y93.89 Activity, other specified; Y92.89 Other specified places as the place of occurrence of the external cause; Y99.8 Other external cause status
CPT/HCPCS: 27762; 73600; 73610; 73630; 93971; 99284; A4338; A4358; A6449

== ENCOUNTER 2022-10-28 08:54 | Emergency (ER) | payer MEDICAID ==
[~2022-10-28] VITALS: Ht 175.3 cm; Wt 162.6 kg
[~2022-10-28 08:54] MED LIST changes: +OXYC-150 PO
[2022-10-28 09:01] VITALS: BP 181/112
[2022-10-28] MEDS ORDERED: LORA10CA PO (09:10)
[2022-10-28] MEDS ORDERED: METH4TAB3 PO (09:10)
[2022-10-28] MEDS ORDERED: ALBU6.7H14 INH (09:11)
[2022-10-28] MEDS ORDERED: triamcinolone acetonide 40mg/ml inj IM ONE (09:15)
[2022-10-28] MEDS ORDERED: diphenhydrAMINE 25mg capsule PO ONE (09:15)
== END 2022-10-28 09:26 | disposition home or self-care (01) ==
LOC: ER 08:54
DX: L23.7 Allergic contact dermatitis due to plants, except food (principal); I10 Essential (primary) hypertension; F17.200 Nicotine dependence, unspecified, uncomplicated; F12.90 Cannabis use, unspecified, uncomplicated; F15.20 Other stimulant dependence, uncomplicated; Z88.8 Allergy status to other drugs, medicaments and biological substances; Z59.00 Homelessness unspecified
CPT/HCPCS: 96372; 99283; J3301; Q0163

== ENCOUNTER 2022-11-08 11:26 | Day surgery (SDC) | payer MEDICAID ==
[2022-11-06 14:48] LABS: BASOPHILS # (AUTO) 0.1 X10'3 (0-0.2); BASOPHILS % (AUTO) 0.7 % (0-1); EOSINOPHILS # (AUTO) 0.4 X10'3 (0-0.9); EOSINOPHILS % (AUTO) 4.7 % (0-6); LYMPHOCYTES # (AUTO) 2.5 X10'3 (1.1-4.8); MEAN CORPUSCULAR HEMOGLOBIN 28.8 PG (27.0-31.0); MEAN CORPUSCULAR HGB CONC 33.1 g/dL (33.0-36.5); MEAN PLATELET VOLUME 7.6 FL (7.4-10.4); MONOCYTES # (AUTO) 0.8 X10'3 (0-0.9); MONOCYTES % (AUTO) 8.5 % (2-12); NEUTROPHILS # (AUTO) 5.8 X10'3 (1.8-7.7); NEUTROPHILS % (AUTO) 60.1 % (42-75); PRE OP HEMATOCRIT 50.7 % (42.0-52.0); PRE OP HEMOGLOBIN 16.8 g/dL (14.0-17.9); PRE OP PLATELET COUNT 357 X10'3 (140-440); RED BLOOD COUNT 5.83 X10'6 (4.70-6.10); RED CELL DISTRIBUTION WIDTH 14.8 % (11.5-14.5)
[2022-11-06 14:50] LABS: CLARITY,URINE CLOUDY (Clear); COLOR,URINE YELLOW (Yellow); GLUCOSE, URINE 100 mg/dl (Neg); KETONES,URINE NEGATIVE (Neg); LEUKOCYTE ESTERASE ,URINE NEGATIVE (Neg); NITRITES, URINE NEGATIVE (Neg); OCCULT BLOOD,URINE SMALL (Neg); PROTEIN,URINE NEGATIVE (Neg); UROBILINOGEN,URINE 0.2 E.U/dL (0.2-1.0)
[2022-11-06 14:55] LABS: UA COLLECTION TYPE CLN CATCH MIDSTREAM
[2022-11-06 15:14] LABS: ALBUMIN 3.5 G/DL (3.4-5.0); ALBUMIN/GLOBULIN RATIO 0.8 (1.1-1.5); ALKALINE PHOSPHATASE 114 IU/L (46-116); BLOOD UREA NITROGEN 15 MG/DL (7-18); BUN/CREATININE RATIO 19.7 (10.0-20.0); CALCIUM 9.4 MG/DL (8.5-10.1); CHLORIDE 103 MMOL/L (99-107); CREATININE 0.76 MG/DL (0.60-1.10); PRE OP ALT 44 U/L (30-65); PRE OP ANION GAP 9 (8-16); PRE OP AST 21 U/L (10-37); PRE OP BILIRUB, TOTAL 0.4 MG/DL (0.0-1.0); PRE OP GLUCOSE 76 MG/DL (70-104); PRE OP POTASSIUM 4.2 MMOL/L (3.4-5.1); PRE OP SODIUM 137 MMOL/L (135-145); TOTAL CARBON DIOXIDE 25.5 MMOL/L (24-32); TOTAL PROTEIN 7.9 G/DL (6.4-8.2); eGFR > 90 ML/MIN
[2022-11-06 15:52] LABS: SQUAMOUS EPITHELIAL CELL,UR FEW /LPF (FEW)
[2022-11-06 15:58] LABS: COARSE GRANULAR CAST 0-3 /LPF (NEGATIVE)
[2022-11-06 16:00] LABS: CAL OXALATE CRYSTALS FEW /HPF (NEGATIVE)
[2022-11-06 16:01] LABS: BACTERIA,URINE FEW /HPF (Neg)
[2022-11-06 16:02] LABS: RBC,URINE 0-2 /HPF (0-2); WBC,URINE 0-4 /HPF (0-4)
[~2022-11-08] VITALS: Ht 175.3 cm; Wt 132.0 kg
[2022-11-08] VITALS (15 sets, daily range): BP systolic 132–166; BP diastolic 63–100
[~2022-11-08 11:26] MED LIST changes: -AMOX-580 PO; -FURO20TA4 PO; -LISI20TA28 PO; -NICO-669 BC; +NO HOME MEDS; -OXYC-150 PO; +ceFAZolin inj. 3,000 MG in normal saline 100ml IV soln 100 ML IV ONE; +famotidine 20mg tablet PO ONE; +ringers solution, lacted 1,000 ML IV SCH; +tranexamic acid inj. 1,000 MG in normal saline IV soln 100ML IV ONE
[2022-11-08] MEDS ORDERED: mupirocin 2% ointment 22GM ONE (12:15)
[2022-11-08] MEDS ORDERED: BUPIVAcaine/PF 2.5 mg/ml (0.25%) 30ml vial ONE (12:15)
[2022-11-08] MEDS ORDERED: LISI20TA28 PO (12:16)
[2022-11-08] MEDS ORDERED: ROPIVAcaine 0.5% (5mg/ml) 30ml vial ONE ×4 (12:29→15:22)
[2022-11-08] MEDS ORDERED: LIDOcaine 2% (20mg/ml) 5ml vial ONE (12:30)
[2022-11-08] MEDS ORDERED: succinylcholine 20mg/ml inj IV ONE ×2 (12:30→12:31)
[2022-11-08] MEDS ORDERED: ondansetron/PF 4mg/2ml inj ONE ×2 (12:30→15:22)
[2022-11-08] MEDS ORDERED: propofol inj 20 ML IV ONE ×2 (12:30)
[2022-11-08] MEDS ORDERED: dexamethasone sod phosphate 4mg/ml inj. ONE ×2 (12:30→15:22)
[2022-11-08] MEDS ORDERED: midazolam 1 mg/ML 2ml injection ONE (14:18)
[2022-11-08] MEDS ORDERED: fentaNYL /PF 50mcg/ml 5ml ampule ONE (15:20)
[2022-11-08] MEDS ORDERED: rocuronium 10mg/ml inj IV ONE (15:22)
[2022-11-08] MEDS ORDERED: meperidine/PF 25mg/ml syringe IV PRN (15:35)
[2022-11-08] MEDS ORDERED: morphine 2 MG/ML inj. syringe IV PRN (15:35)
[2022-11-08] MEDS ORDERED: labetalol 20mg/4ml (5mg/ml) syringe IV PRN (15:35)
[2022-11-08] MEDS ORDERED: ondansetron/PF 4mg/2ml inj IV PRN (15:35)
[2022-11-08] MEDS ORDERED: acetaminophen 1,000mg/100ml IV 100 ML IV PRN (15:35)
[2022-11-08] MEDS ORDERED: proCHLORperazine 10 MG/2 ml inj IV PRN (15:35)
[2022-11-08] MEDS ORDERED: HYDROmorphone/PF 0.2 MG/ML SYRINGE IV PRN ×2 (15:35)
[2022-11-08] MEDS ORDERED: ringers solution, lacted 1,000 ML IV SCH (15:35)
[2022-11-08] MEDS ORDERED: morphine 4 MG/ML inj SYRINge IV PRN (15:35)
[2022-11-08] MEDS ORDERED: hydrALAZINE 20mg/ml inj. IV PRN (15:35)
[2022-11-08] MEDS ORDERED: ROPIVAcaine 0.2% (10 MG/5 ML) BOLUS INJECTION POPLITEAL PRN (15:40)
[2022-11-08] MEDS ORDERED: ROPIVAcaine 0.2%/PF PUMP/bolus 545 ML POPLITEAL SCH (15:40)
--- NOTE | 2022-11-08 16:18 | NUR ---
Received from OR via JOSE ALFREDO, accompanied by Anesthesiologist DR GRANT and report given by Anesthesiologist AND SUPERVISOR CONDITIONING YARD. PT VERY DROWSY, NO S/S OF DISTRESS/DISCOMFORT. LEFT LEG FROM BELOW KNEE TO BEGINNING OF TOES W/SPLINT AND SAMANTHA WRAP COVERING CDI. TOES PWD, BLASTING GANG MINER 1-2 SECONDS. ACB CATHETER ON LEFT THIGH INTACT. Addendum: 11/08/22 at 1717 by Estefania Alexander RN Amended: Links added.
--- NOTE | 2022-11-08 18:58 | NUR ---
PT UP AND ABLE TO AMBULATE WITH CRUTCHES SAFELY. PTS MOM IN, D/C INSTRUCTIONS GIVEN AND GONE OVER W/PT AND HIS MOM, BOTH VERBALIZED UNDERSTANDING. LEG ELEVATOR SENT HOME W/PT. PT D/CD TO HOME VIA W/C TO PRIVATE VEHICLE W/O INCIDENT. Addendum: 11/08/22 at 1907 by Estefania Alexander RN Amended: Links added.
== END 2022-11-08 18:58 | disposition home or self-care (01) ==
LOC: PAS 11:26
PROVIDERS: ATTEND Podiatrist Foot & Ankle Surgery
DX: S82.842A Displaced bimalleolar fracture of left lower leg, initial encounter for closed fracture (principal); I10 Essential (primary) hypertension; G47.33 Obstructive sleep apnea (adult) (pediatric); G89.18 Other acute postprocedural pain; E66.9 Obesity, unspecified; Z68.41 Body mass index [BMI] 40.0-44.9, adult; F12.90 Cannabis use, unspecified, uncomplicated; F15.90 Other stimulant use, unspecified, uncomplicated; Z87.891 Personal history of nicotine dependence; Z87.442 Personal history of urinary calculi; Z88.8 Allergy status to other drugs, medicaments and biological substances; Z79.899 Other long term (current) drug therapy; Z79.82 Long term (current) use of aspirin; X58.XXXA Exposure to other specified factors, initial encounter; Y93.89 Activity, other specified; Y92.89 Other specified places as the place of occurrence of the external cause; Y99.8 Other external cause status
CPT/HCPCS: 27814; 36415; 64446; 64447; 73600; 80053; 81001; 82948; 85025; 93005; A6223; C1713; J0690; J1100; J2250; J2405; J2704; J2795; J3010; J3490; J7030; J7120; Z7506; Z7508; Z7512; 76000; A4618; A6253; A6449; A7000; C1769; J0330

== ENCOUNTER 2023-01-24 12:13 | Emergency (ER) | payer MEDICAID ==
[~2023-01-24] VITALS: Ht 177.8 cm; Wt 121.8 kg
[~2023-01-24 12:13] MED LIST changes: +LISI20TA28 PO; -ceFAZolin inj. 3,000 MG in normal saline 100ml IV soln 100 ML IV ONE; -famotidine 20mg tablet PO ONE; -ringers solution, lacted 1,000 ML IV SCH; -tranexamic acid inj. 1,000 MG in normal saline IV soln 100ML IV ONE
[2023-01-24 13:04] VITALS: BP 148/104; PULSE 100; RESP 17; O2SAT 95
[2023-01-24] MEDS ORDERED: LIDOcaine 1% W/epiNEPHrine 1:200,000 10ml vial IJ ONE (13:55)
[2023-01-24] MEDS ORDERED: TETanus/Pertussis (Acell)/Diphther VAC/PF (Tdap-Adult) 0.5ml syringe IMVAC ONE (14:20)
[2023-01-24] MEDS ORDERED: LIDOcaine 1% W/epiNEPHrine 1:100,000 20ml vial SQ ONE (14:20)
[2023-01-24] MEDS ORDERED: lidocaine 1%/epinephrine 1:100,000 inj. 50ml multi-dose vial IJ ONE (14:35)
--- NOTE | 2023-01-24 14:41 | NUR ---
3rd call to pharmacy regarding lidocaine order. They stated they will have someone deliver the medication now.
[2023-01-24] MEDS ORDERED: CEPH-585 PO (15:14)
--- NOTE | 2023-01-24 15:57 | NUR ---
Wound repaired with 14 panchito placed by ED provider.
[2023-01-24] MEDS ORDERED: HYDR-3972 PO (16:02)
== END 2023-01-24 16:04 | disposition home or self-care (01) ==
LOC: ER 12:14
DX: S81.811A Laceration without foreign body, right lower leg, initial encounter (principal); I10 Essential (primary) hypertension; F17.200 Nicotine dependence, unspecified, uncomplicated; F12.90 Cannabis use, unspecified, uncomplicated; F15.90 Other stimulant use, unspecified, uncomplicated; Z23 Encounter for immunization; Z88.8 Allergy status to other drugs, medicaments and biological substances; Z79.2 Long term (current) use of antibiotics; V09.9XXA Pedestrian injured in unspecified transport accident, initial encounter; Y93.89 Activity, other specified; Y92.89 Other specified places as the place of occurrence of the external cause; Y99.8 Other external cause status
CPT/HCPCS: 12004; 90471; 90715; 99283; J7030; A6258; A6446; A6449

== ENCOUNTER 2023-06-12 06:01 | Inpatient (IN) | payer MEDICAID ==
[2023-06-12] VITALS (9 sets, daily range): BP systolic 124–150; BP diastolic 53–92; PULSE 91–99; RESP 16–24; TEMP 97.6–99.2; O2SAT 92–94
[~2023-06-12] VITALS: Ht 177.8 cm; Wt 125.0 kg
[~2023-06-12 06:01] MED LIST changes: +CEPH-585 PO
[2023-06-12] MEDS ORDERED: acetaminophen 325mg tablet PO ONE (06:40)
[2023-06-12] MEDS ORDERED: CefTRIAXone 2gm/D5W 50ml BAG 50 ML IV STA (06:45)
[2023-06-12] MEDS ORDERED: normal saline 1000ml 1,000 ML IV ONE (08:15)
[2023-06-12 08:48] LABS: BASOPHILS % (AUTO) 0.2 % (0-1); EOSINOPHILS % (AUTO) 0.2 % (0-6); HEMATOCRIT 38.9 % (42.0-52.0); HEMOGLOBIN 13.2 g/dl (14.0-17.9); LYMPHOCYTES # (AUTO) 0.2 X10'3 (1.1-4.8); LYMPHOCYTES % (AUTO) 2.4 % (21-51); MEAN CORPUSCULAR HEMOGLOBIN 30.2 PG (27.0-31.0); MEAN CORPUSCULAR HGB CONC 33.8 g/dL (33.0-36.5); MEAN CORPUSCULAR VOLUME 89.2 FL (78-98); MEAN PLATELET VOLUME 7.5 FL (7.4-10.4); MONOCYTES # (AUTO) 0.5 X10'3 (0-0.9); NEUTROPHILS # (AUTO) 6.6 X10'3 (1.8-7.7); NEUTROPHILS % (AUTO) 90.2 % (42-75); PLATELET COUNT 230 X10'3 (140-440); RED BLOOD COUNT 4.36 X10'6 (4.70-6.10); WHITE BLOOD COUNT 7.3 X10'3 (4.5-11.0)
[2023-06-12 09:00] LABS: ALANINE AMINOTRANSFERASE 45 U/L (12-78); ALBUMIN 3.2 G/DL (3.4-5.0); ALBUMIN/GLOBULIN RATIO 0.8 (1.1-1.5); ALKALINE PHOSPHATASE 80 IU/L (46-116); ANION GAP 10 (8-16); ASPARTATE AMINO TRANSFERASE 32 U/L (10-37); BILIRUBIN,TOTAL 0.6 MG/DL (0.1-1.0); BLOOD UREA NITROGEN 16 MG/DL (7-18); BUN/CREATININE RATIO 13.6 (10.0-20.0); CALCIUM 8.5 MG/DL (8.5-10.1); CHLORIDE 102 MMOL/L (99-107); CREATININE 1.18 MG/DL (0.60-1.10); GLUCOSE 97 MG/DL (70-104); POTASSIUM 3.3 MMOL/L (3.5-5.1); SODIUM 137 MMOL/L (135-145); TOTAL CARBON DIOXIDE 25.4 MMOL/L (24-32); TOTAL PROTEIN 7.4 G/DL (6.4-8.2); eCRCL 76 ML/MIN; eGFR 65 ML/MIN
[2023-06-12 09:08] LABS: PRO BRAIN NATRIURETIC PEPTIDE 365 PG/ML (0-125)
[2023-06-12] MEDS ORDERED: ibuprofen 200mg tablet PO ONE (09:25)
[2023-06-12] MEDS ORDERED: methylPREDNISolone sod succ 125mg/2ml vial IV ONE (11:05)
[2023-06-12] MEDS ORDERED: oseltamivir phos 75mg capsule PO ONE (11:15)
[2023-06-12] MEDS: ringers solution, lacted 1,000 ML IV SCH ×2 (11:43→22:13)
[2023-06-12] MEDS: lisinopril 20mg tablet PO SCH ×2 (11:45→22:14)
[2023-06-12] MEDS ORDERED: acetaminophen 325mg tablet PO PRN ×2 (12:45→12:50)
[2023-06-12] MEDS ORDERED: magnesium 2GM in 50ml NS 50 ML IV PRN (12:50)
[2023-06-12] MEDS ORDERED: potassium Cl 40MEQ/1/2NS 520ml 520 ML IV PRN (12:50)
[2023-06-12] MEDS ORDERED: magnesium 4gm in 100ml NS 100 ML IV PRN (12:50)
[2023-06-12] MEDS ORDERED: mag hydrox/Alum hydrox/simeth 30ml oral suspension PO PRN (12:50)
[2023-06-12] MEDS ORDERED: potassium Cl 20 mEq SR tablet PO PRN ×2 (12:50)
[2023-06-12] MEDS ORDERED: ondansetron/PF 4mg/2ml inj IV PRN (12:50)
[2023-06-12] MEDS ORDERED: magnesium Cl slow-release 64mg tablet PO PRN (12:50)
[2023-06-12] MEDS ORDERED: magnesium hydroxide 30ml (MOM) UD suspension PO PRN (12:50)
[2023-06-12 13:29] LABS: BILIRUBIN,URINE NEGATIVE (Neg); CLARITY,URINE CLEAR (Clear); COLOR,URINE YELLOW (Yellow); GLUCOSE, URINE NEGATIVE (Neg); KETONES,URINE NEGATIVE (Neg); LEUKOCYTE ESTERASE ,URINE NEGATIVE (Neg); NITRITES, URINE NEGATIVE (Neg); OCCULT BLOOD,URINE NEGATIVE (Neg); PH,URINE 5.5 (4.8-8.0); PROTEIN,URINE NEGATIVE (Neg); UROBILINOGEN,URINE 0.2 E.U/dL (0.2-1.0)
[2023-06-12 13:39] LABS: UA COLLECTION TYPE NON-SPECIFIED
[2023-06-12] MEDS: ipratropium/albuterol 3ml nebule NEB SCH ×4 (14:48→22:52)
[2023-06-12] MEDS ORDERED: thiamine 100mg/ml 2ml inj. IV ONE (14:50)
[2023-06-12] MEDS ORDERED: BUPR-317 PEG (16:09)
[2023-06-12] MEDS ORDERED: ATOR40TA72 PO (16:09)
[2023-06-12] MEDS ORDERED: LISI1TAB53 PO (16:09)
[2023-06-12] MEDS: docusate sod 100mg capsule PO SCH (20:00)
[2023-06-12] MEDS: K and/or MAG REPLACEMENT MC SCH (20:00)
[2023-06-12] MEDS: benzonatate 100mg capsule PO PRN (22:14)
[2023-06-12] MEDS: oseltamivir phos 75mg capsule PO SCH (22:14)
[2023-06-12] MEDS: enoxaparin 40mg/0.4ml syringe SUBCUT SCH (22:15)
[2023-06-12] MEDS: zolpidem 5mg tablet PO PRN (23:17)
[2023-06-13] VITALS (18 sets, daily range): BP systolic 130–148; BP diastolic 69–87; PULSE 91–109; RESP 13–55; TEMP 98–99.9; O2SAT 91–95
[2023-06-13] MEDS: HYDROcodone/acetaminophen 5mg/325mg tablet PO PRN ×4 (02:37→23:03)
[2023-06-13] MEDS: ipratropium/albuterol 3ml nebule NEB SCH ×5 (03:07→22:31)
[2023-06-13 06:54] LABS: APTT 34 SECONDS (22-32); INR 1.1 INR; PROTHROMBIN TIME 11.4 SECONDS (9.0-12.0)
[2023-06-13 06:56] LABS: BASOPHILS % (AUTO) 0.1 % (0-1); EOSINOPHILS % (AUTO) 0 % (0-6); HEMATOCRIT 39.5 % (42.0-52.0); HEMOGLOBIN 13.6 g/dl (14.0-17.9); LYMPHOCYTES # (AUTO) 0.4 X10'3 (1.1-4.8); LYMPHOCYTES % (AUTO) 4.6 % (21-51); MEAN CORPUSCULAR HEMOGLOBIN 30.6 PG (27.0-31.0); MEAN CORPUSCULAR HGB CONC 34.3 g/dL (33.0-36.5); MEAN PLATELET VOLUME 7.9 FL (7.4-10.4); MONOCYTES # (AUTO) 0.4 X10'3 (0-0.9); MONOCYTES % (AUTO) 3.8 % (2-12); NEUTROPHILS # (AUTO) 8.7 X10'3 (1.8-7.7); NEUTROPHILS % (AUTO) 91.5 % (42-75); PLATELET COUNT 239 X10'3 (140-440); RED BLOOD COUNT 4.43 X10'6 (4.70-6.10); RED CELL DISTRIBUTION WIDTH 13.6 % (11.5-14.5); WHITE BLOOD COUNT 9.5 X10'3 (4.5-11.0)
[2023-06-13 07:01] LABS: ANION GAP 9 (8-16); BLOOD UREA NITROGEN 19 MG/DL (7-18); BUN/CREATININE RATIO 21.8 (10.0-20.0); CALCIUM 8.6 MG/DL (8.5-10.1); CHLORIDE 100 MMOL/L (99-107); CREATININE 0.87 MG/DL (0.60-1.10); GLUCOSE 123 MG/DL (70-104); MAGNESIUM 1.8 MG/DL (1.5-2.4); PHOSPHORUS 3.6 MG/DL (2.3-4.5); SODIUM 135 MMOL/L (135-145); TOTAL CARBON DIOXIDE 25.6 MMOL/L (24-32); eCRCL 103 ML/MIN; eGFR > 90 ML/MIN
[2023-06-13] MEDS: K and/or MAG REPLACEMENT MC SCH ×2 (07:12→20:00)
[2023-06-13] MEDS ORDERED: CefTRIAXone/D5W-Rocephin 1gm 50 ML IV SCH (08:00)
[2023-06-13] MEDS: docusate sod 100mg capsule PO SCH ×2 (08:00→19:48)
[2023-06-13] MEDS: oseltamivir phos 75mg capsule PO SCH ×2 (08:45→20:06)
[2023-06-13] MEDS: lisinopril 20mg tablet PO SCH ×2 (08:45→20:09)
[2023-06-13] MEDS: azithromycin/NS 500mg/250ml 250 ML IV SCH (08:45)
[2023-06-13] MEDS: enoxaparin 40mg/0.4ml syringe SUBCUT SCH (08:46)
[2023-06-13] MEDS: benzonatate 100mg capsule PO PRN ×2 (08:55→20:06)
[2023-06-13 09:52] LABS: C DIFF ANTIGEN NEGATIVE (NEGATIVE); C DIFF SPECIMEN=DIARRHEA? ACCEPTABLE; C DIFFICILE TOXINS A&B NEGATIVE (Neg)
[2023-06-13] MEDS ORDERED: ipratropium/albuterol 3ml nebule NEB PRN (14:05)
[2023-06-13] MEDS: zolpidem 5mg tablet PO PRN (23:03)
[2023-06-14] VITALS (20 sets, daily range): BP systolic 103–136; BP diastolic 51–78; PULSE 84–99; RESP 15–24; TEMP 98.2–98.8; O2SAT 90–98
[2023-06-14] MEDS: ipratropium/albuterol 3ml nebule NEB SCH ×6 (02:58→23:19)
[2023-06-14] MEDS: benzonatate 100mg capsule PO PRN ×2 (05:02→19:53)
[2023-06-14 06:59] LABS: BASOPHILS % (AUTO) 0.4 % (0-1); EOSINOPHILS % (AUTO) 0.1 % (0-6); HEMATOCRIT 41.7 % (42.0-52.0); LYMPHOCYTES # (AUTO) 1.3 X10'3 (1.1-4.8); LYMPHOCYTES % (AUTO) 19.7 % (21-51); MEAN CORPUSCULAR HEMOGLOBIN 29.8 PG (27.0-31.0); MEAN CORPUSCULAR HGB CONC 33.5 g/dL (33.0-36.5); MEAN CORPUSCULAR VOLUME 89.1 FL (78-98); MEAN PLATELET VOLUME 7.7 FL (7.4-10.4); MONOCYTES # (AUTO) 0.6 X10'3 (0-0.9); MONOCYTES % (AUTO) 8.9 % (2-12); NEUTROPHILS # (AUTO) 4.6 X10'3 (1.8-7.7); NEUTROPHILS % (AUTO) 70.9 % (42-75); PLATELET COUNT 234 X10'3 (140-440); RED BLOOD COUNT 4.68 X10'6 (4.70-6.10); RED CELL DISTRIBUTION WIDTH 14.1 % (11.5-14.5); WHITE BLOOD COUNT 6.5 X10'3 (4.5-11.0)
[2023-06-14 07:36] LABS: ALBUMIN 2.9 G/DL (3.4-5.0); ANION GAP 9 (8-16); BLOOD UREA NITROGEN 20 MG/DL (7-18); BUN/CREATININE RATIO 22.7 (10.0-20.0); CALCIUM 8.6 MG/DL (8.5-10.1); CHLORIDE 100 MMOL/L (99-107); CREATININE 0.88 MG/DL (0.60-1.10); GLUCOSE 82 MG/DL (70-104); MAGNESIUM 1.9 MG/DL (1.5-2.4); SODIUM 136 MMOL/L (135-145); TOTAL CARBON DIOXIDE 26.8 MMOL/L (24-32); eCRCL 101 ML/MIN; eGFR > 90 ML/MIN
[2023-06-14] MEDS: docusate sod 100mg capsule PO SCH ×2 (08:00→20:00)
[2023-06-14] MEDS: K and/or MAG REPLACEMENT MC SCH ×2 (08:00→19:40)
[2023-06-14] MEDS: oseltamivir phos 75mg capsule PO SCH ×2 (09:14→19:45)
[2023-06-14] MEDS: lisinopril 20mg tablet PO SCH ×2 (09:15→19:48)
[2023-06-14] MEDS: enoxaparin 40mg/0.4ml syringe SUBCUT SCH (09:15)
[2023-06-14] MEDS: azithromycin/NS 500mg/250ml 250 ML IV SCH (09:54)
[2023-06-14] MEDS: HYDROcodone/acetaminophen 5mg/325mg tablet PO PRN ×2 (09:54→19:25)
[2023-06-14 14:13] LABS: HBSAG SCREEN Negative (Negative); HEP B CORE AB, IGM Negative (Negative); HEP B CORE AB, TOT Negative (Negative)
[2023-06-15] VITALS (13 sets, daily range): BP systolic 116–126; BP diastolic 62–77; PULSE 84–104; RESP 16–22; TEMP 98–98.1; O2SAT 86–97
[2023-06-15] MEDS: zolpidem 5mg tablet PO PRN (00:03)
[2023-06-15] MEDS: ipratropium/albuterol 3ml nebule NEB SCH ×4 (03:20→14:34)
[2023-06-15] MEDS: HYDROcodone/acetaminophen 5mg/325mg tablet PO PRN (03:35)
[2023-06-15 07:19] LABS: BASOPHILS % (AUTO) 0.4 % (0-1); EOSINOPHILS % (AUTO) 0.2 % (0-6); HEMATOCRIT 42.1 % (42.0-52.0); HEMOGLOBIN 14.2 g/dl (14.0-17.9); LYMPHOCYTES # (AUTO) 1.1 X10'3 (1.1-4.8); LYMPHOCYTES % (AUTO) 25.3 % (21-51); MEAN CORPUSCULAR HGB CONC 33.7 g/dL (33.0-36.5); MEAN CORPUSCULAR VOLUME 89.3 FL (78-98); MEAN PLATELET VOLUME 7.5 FL (7.4-10.4); MONOCYTES # (AUTO) 0.5 X10'3 (0-0.9); MONOCYTES % (AUTO) 11.7 % (2-12); NEUTROPHILS # (AUTO) 2.8 X10'3 (1.8-7.7); NEUTROPHILS % (AUTO) 62.4 % (42-75); PLATELET COUNT 228 X10'3 (140-440); RED BLOOD COUNT 4.72 X10'6 (4.70-6.10); WHITE BLOOD COUNT 4.4 X10'3 (4.5-11.0)
[2023-06-15 07:35] LABS: ALBUMIN 2.8 G/DL (3.4-5.0); ANION GAP 11 (8-16); BLOOD UREA NITROGEN 14 MG/DL (7-18); BUN/CREATININE RATIO 16.3 (10.0-20.0); CALCIUM 8.7 MG/DL (8.5-10.1); CHLORIDE 99 MMOL/L (99-107); CREATININE 0.86 MG/DL (0.60-1.10); GLUCOSE 80 MG/DL (70-104); MAGNESIUM 2.1 MG/DL (1.5-2.4); POTASSIUM 3.8 MMOL/L (3.5-5.1); SODIUM 137 MMOL/L (135-145); TOTAL CARBON DIOXIDE 27.2 MMOL/L (24-32); eCRCL 104 ML/MIN; eGFR > 90 ML/MIN
[2023-06-15] MEDS: azithromycin/NS 500mg/250ml 250 ML IV SCH (07:55)
[2023-06-15] MEDS: docusate sod 100mg capsule PO SCH (08:00)
[2023-06-15] MEDS: K and/or MAG REPLACEMENT MC SCH (08:00)
[2023-06-15] MEDS: enoxaparin 40mg/0.4ml syringe SUBCUT SCH (08:17)
[2023-06-15] MEDS: oseltamivir phos 75mg capsule PO SCH (08:17)
[2023-06-15] MEDS: lisinopril 20mg tablet PO SCH (08:17)
[2023-06-15] MEDS ORDERED: AZIT500T PO (12:06)
[2023-06-15] MEDS ORDERED: TAM75C PO (12:06)
== END 2023-06-15 15:25 | disposition home or self-care (01) | DRG 720 ==
LOC: ER 06:02 → ED HOLD 12:52 → ORTHO 4S 17:45
PROVIDERS: ADMIT Family Medicine; ATTEND Family Medicine
DX: A41.9 Sepsis, unspecified organism (principal); J96.01 Acute respiratory failure with hypoxia; J12.9 Viral pneumonia, unspecified; J10.1 Influenza due to other identified influenza virus with other respiratory manifestations; I10 Essential (primary) hypertension; E78.5 Hyperlipidemia, unspecified; Z87.891 Personal history of nicotine dependence
CPT/HCPCS: 36415; 71045; 80048; 80053; 81003; 82948; 83605; 83735; 83880; 84100; 84145; 84484; 85025; 85610; 85730; 86704; 86705; 87040; 87081; 87324; 87340; 87449; 87502; 87503; 87811; 94640; 94760; 96361; 96374; 99285; A4615; G0378; J0456; J0696; J1650; J2930; J3411; J7030; J7120

== ENCOUNTER 2023-06-20 18:44 | Emergency (ER) | payer MEDICAID ==
[~2023-06-20] VITALS: Ht 177.8 cm; Wt 110.0 kg
[~2023-06-20 18:44] MED LIST changes: +ATOR40TA72 PO; +BUPR-317 PEG; -CEPH-585 PO; +LISI1TAB53 PO; -LISI20TA28 PO; -NO HOME MEDS; +TAM75C PO
[2023-06-20] MEDS ORDERED: albut (20:26)
[2023-06-20] MEDS ORDERED: ALBU8HFA INH (20:26)
[2023-06-20 20:33] VITALS: BP 139/94; PULSE 82; RESP 15; TEMP 98; O2SAT 99
== END 2023-06-20 20:35 | disposition home or self-care (01) ==
LOC: ER 18:44
DX: J98.01 Acute bronchospasm (principal); I10 Essential (primary) hypertension; Z87.442 Personal history of urinary calculi; F12.90 Cannabis use, unspecified, uncomplicated; F15.90 Other stimulant use, unspecified, uncomplicated; Z59.00 Homelessness unspecified; Z88.8 Allergy status to other drugs, medicaments and biological substances; Z79.899 Other long term (current) drug therapy
CPT/HCPCS: 71045; 99283

== ENCOUNTER → 2023-12-09 | Outpatient (CLI) | payer MEDICAID ==
[~2023-12-09] MED LIST changes: +albut
== END | disposition home or self-care (01) ==
LOC: RAD 14:13
PROVIDERS: ATTEND Physician Assistant
DX: K42.9 Umbilical hernia without obstruction or gangrene (principal)
CPT/HCPCS: 76705